=== PATIENT | female | born 1970 | race Caucasian/White ===

== ENCOUNTER 2016-05-12 07:34 | Emergency (ER) | payer MEDICAID ==
[~2016-05-12] VITALS: Wt 75.0 kg
[~2016-05-12 07:34] MED LIST: CIPR500T4 PO; FLUO10CA66 PO; HYD25 PO; HYDR-3498 PO; LEVO50TA74 PO; LOSA100T7 PO; OMEP40CA3 PO; ONDA4TAB35 PO
[2016-05-12] MEDS ORDERED: SOD CHLORIDE 0.9% 500 ML IV STA (07:53)
[2016-05-12] MEDS ORDERED: KETOROLAC 30 MG INJ IV STA (07:53)
[2016-05-12] MEDS ORDERED: ONDANSETRON 4 MG INJ IV STA ×2 (07:53→09:07)
[2016-05-12 08:24] LABS: ADD SCAN DIFF NO
[2016-05-12 08:30] LABS: BASOPHIL # 0.1 10^3/ul (0.0-0.1); EOSINOPHILS # 0.2 10^3/ul (0.0-0.5); EOSINOPHILS % 3.6 % (0.0-7.0); HEMATOCRIT 34.5 % (37.0-47.0); HEMOGLOBIN 10.8 g/dl (12.0-16.0); LYMPHOCYTES # 2.4 10^3/ul (0.8-2.9); LYMPHOCYTES % 40.5 % (15.0-51.0); MEAN CORPUSCULAR HEMOGLOBIN 24.8 pg (29.0-33.0); MEAN CORPUSCULAR HGB CONC 31.3 g/dl (32.0-37.0); MEAN CORPUSCULAR VOLUME 79.1 fl (82.0-101.0); MEAN PLATELET VOLUME 10.6 fl (7.4-10.4); MONOCYTE # 0.5 10^3/ul (0.3-0.9); MONOCYTES % 7.5 % (0.0-11.0); NEUTROPHIL # 2.9 10^3/ul (1.6-7.5); NEUTROPHILS % 47.2 % (39.0-77.0); PLATELET COUNT 414 10^3/UL (140-415); RED BLOOD COUNT 4.36 10^6/ul (4.20-5.40)
[2016-05-12 08:36] LABS: ADD UMIC YES; URINE BILIRUBIN (Dip) NEGATIVE (NEGATIVE); URINE BLOOD (Dip) 3+ (NEGATIVE); URINE COLOR DK. RED (YELLOW); URINE KETONES (Dip) TRACE (NEGATIVE); URINE LEUKOCYTE ESTERASE (Dip) TRACE (NEGATIVE); URINE NITRITE (Dip) POSITIVE (NEGATIVE); URINE TOTAL PROTEIN (Dip) 2+ (NEGATIVE); URINE UROBILINOGEN (Dip) 1.0 E.U./dL (0.1-1.0)
[2016-05-12 08:40] LABS: INR 0.93; PROTIME 12.5 Sec (12.2-14.2)
[2016-05-12 08:41] LABS: PARTIAL THROMBOPLASTIN TIME 34.2 Sec (25.0-35.0)
[2016-05-12 08:46] LABS: ALBUMIN 4.3 g/dl (3.3-4.9); CHLORIDE 103 mmol/L (97-110)
[2016-05-12 08:47] LABS: POTASSIUM 3.8 mmol/L (3.5-5.1); SODIUM 138 mmol/L (135-144)
[2016-05-12 08:49] LABS: ALKALINE PHOSPHATASE 157 IU/L (42-121); ANION GAP 15 (8-16); ASPARTATE AMINO TRANSFERASE 29 IU/L (15-46); BILIRUBIN,INDIRECT 0.2 mg/dl (0-1.1); BILIRUBIN,TOTAL 0.2 mg/dl (0.2-1.3); CARBON DIOXIDE 24 mmol/L (21-31); CREATININE 0.59 mg/dl (0.44-1.00); TOTAL PROTEIN 7.6 g/dl (6.1-8.1)
[2016-05-12 08:50] LABS: ALANINE AMINOTRANSFERASE 41 IU/L (13-69); BLOOD UREA NITROGEN 15 mg/dl (7-20); CALCIUM 9.4 mg/dl (8.4-10.2); GLUCOSE 114 mg/dl (70-220)
[2016-05-12 08:59] LABS: URINE RBCS >200 /HPF (0)
[2016-05-12 09:00] LABS: BACTERIA,URINE MODERATE
[2016-05-12 09:01] LABS: TROPONIN-I < 0.012 ng/ml (0.00-0.12)
[2016-05-12] MEDS ORDERED: HYDROmorphONE 1 MG/ML SYG IV STA (09:07)
[2016-05-12] MEDS ORDERED: IBUP-1542 PO (10:09)
[2016-05-12] MEDS ORDERED: METO25TA7 PO (10:12)
[2016-05-12 10:15] VITALS: BP 156/99; PULSE 80; RESP 18; TEMP 98.8
--- NOTE | 2016-05-12 10:17 | RADRPT ---
PROCEDURE: CT abdomen and pelvis without contrast and with 3-D reconstructions CLINICAL INDICATION: Abdominal Pain TECHNIQUE: CT scan of the abdomen and pelvis without contrast was performed on a multislice CT [facility]. 3-D sagittal and coronal reformatted images were obtained from the axial source images. DLP 1009.62 mGycm CTDIvol 16.86 mGy COMPARISON: CT abdomen/pelvis and soft tissue ultrasound from 07/28/2014 FINDINGS: The visualized lung bases are unremarkable. The liver is homogenous in attenuation. There are no focal liver lesions. There is no intrahepatic or extrahepatic biliary ductal dilatation. The gallbladder is within normal limits. The spleen, pancreas, and adrenal glands are within normal limits. Again noted is a somewhat dense 1.4 cm lesion in the midpole of the right kidney which is unchanged compared to the prior CT from 2014 and is likely a hemorrhagic or proteinaceous cyst. There are at least 2 punctate nonobstructive right renal calculi. There are at least 2 punctate nonobstructive l eft renal calculi. There is no hydronephrosis or hydroureter bilaterally. There are no bladder meryl culi. There are no dilated or thickened loops of bowel. The appendix is within normal limits. There are sc attered colonic diverticula without evidence of diverticulitis. The aorta is within normal limits. There are no enlarged mesenteric, periaortic, or retroperitoneal lymph nodes. There are dystrophic calcifications in the uterus, likely due to degenerated fibroids. There is no free air. There is no free fluid. There are no enlarged intrapelvic or inguinal lymph nodes. A multilobulated oblong opacity is again noted within the subcutaneous soft tissues of the right low er abdominal quadrant, immediately superficial to the abdominal wall which measures of 5.8 x 1.0 cm in maximum axial dimensions on series 3, image 115. It has decreased in size since the prior CT 2014. A soft tissue ultrasound of this lesion was performed on the same day as the CT scan from which demonstrated a a cystic and solid complex mass. This may be a seroma with abscess conside red less likely. IMPRESSION: Punctate nonobstructive bilateral renal calculi without hydronephrosis or hydroureter. 1.4 cm somewhat dense lesion in the midpole of the right kidney is likely a hemorrhagic or proteinac eous cyst. Normal appendix. Scattered colonic diverticula without evidence of diverticulitis. Multilobulated opacity within the subcutaneous soft tissues of the right lower abdominal quadrant is decreased in size since the prior CT study from July 2014 and is likely benign. This may be a sero ma, as above. Correlation with surgical history is recommended. These findings were discussed with Dr. Maldonado of the emergency department over the phone on 05/12 at 10:07 hours. RPTAT: EE Jayy De Physician Date Time Electronically viewed and signed by Jayy De Physician on 05/12/2016 10:17 RA/
[2016-05-12] MEDS ORDERED: CEPH-443 PO (10:20)
--- NOTE | 2016-05-12 10:20 | ERD ---
ER Documentation Chief Complaint Date/Time DATE: 05/12/16 TIME: 10: Chief Complaint left side abd pain and left backpain since last night. n/v/d. mild sob HPI 45-year-old female presents the emergency department complaining of a left- sided abdominal and flank pain. Patient states that intermittently over the course of years, she has had a left- sided flank pain. The pain is nonspecific, sharp and colicky in nature. It is associated with no fevers, chills, hematuria. Patient reports no nausea or vomiting. She reports the pain is mild to moderate and intermittent. Pain does not radiate. Patient states she has been noncompliant with her blood pressure medications, but she reports no chest pain, shortness of breath, focal weakness or numbness. ROS All systems reviewed and are negative except as per history of present illness. Medications Home Meds Active Scripts Metoprolol Succinate* (Toprol XL*) 25 Mg Tab.sr.24h, 25 MG PO DAILY, #30 TAB Prov:KADIE BRO 05/12/16 Ibuprofen* (Ibuprofen*) 600 Mg Tablet, 600 MG PO Q6 for PAIN, #20 TAB Prov:KADIE BRO 05/12/16 Reported Medications Omeprazole* (Prilosec*) 40 Mg Capsule.dr, 40 MG PO DAILY, CAP 12/05/13 Losartan Potassium* (Losartan Potassium*) 100 Mg Tablet, 100 MG PO DAILY, TAB 12/05/13 Levothyroxine Sodium* (Levothyroxine Sodium*) 50 Mcg Tablet, 50 MCG PO DAILY, TAB 12/05/13 Hydrochlorothiazide* (Hydrochlorothiazide*) 25 Mg Tab, 25 MG PO DAILY, TAB 12/05/13 Fluoxetine Hcl* (Prozac*) 10 Mg Capsule, 10 MG PO DAILY 10/12/12 Discontinued Scripts Hydrocodone Bit-Acetaminophen* ([place]*) 5-325 Mg Tab, 1 TAB PO Q6 Y for PAIN, # 7 TAB Prov:ADI MEHTA 07/28/14 Ondansetron Hcl* (Zofran* ODT) 4 mg -ODT Tab.disper, 4 MG PO Q6 Y for NAUSEA AND /OR VOMITING, #10 TAB Prov:ADI MEHTA 07/28/14 Ciprofloxacin Hcl* (Ciprofloxacin Hcl*) 500 Mg Tablet, 500 MG PO BID for 10 Days , TAB Prov:ADI MEHTA 07/28/14 Allergies Allergies: Coded Allergies: No Known Drug Allergies (Verified Allergy, Mild, 06/24/14) PMhx/Soc History of Surgery: Yes ( X3) Anesthesia Reaction: No Hx Neurological Disorder: No Hx Respiratory Disorders: No Hx Cardiac Disorders: Yes (HTN) Hx Psychiatric Problems: Yes (ANXIETY) Hx Miscellaneous Medical Probl: Yes (dvt right leg 1 week ago, right ankle fx) Hx Alcohol Use: No Hx Substance Use: No Hx Tobacco Use: No Smoking Status: Never smoker FmHx Noncontributory for chief complaint Physical Exam Vitals Vital Signs Date Time Temp Pulse Resp B/P Pulse Ox O2 Delivery O2 Flow Rate FiO2 05/12/16 08:20 80 20 174/94 99 Room Air 05/12/16 07:38 98.8 85 20 203/125 100 Physical Exam GENERAL: The patient is well developed and appropriate for usual state of health in no apparent distress HEENT: Pupils equal, round, and reactive to light. EOMI. There is no scleral icterus. NECK: C-spine is soft and supple, there is no meningismus. There is no cervical lymphadenopathy. LUNGS: Clear to auscultation bilaterally. There are no rales, wheezes or rhonchi. HEART: Regular rate and rhythm, no murmurs, clicks, rubs or gallops. ABDOMEN: Soft, non-tender, non-distended. There are bowel sounds in all four quadrants. No rebound or guarding. No CVA tenderness. No pulsatile abdominal mass. EXTREMITIES: There is no peripheral cyanosis or edema. No focal swelling or erythema. NEURO: The patient moves all four extremities with 5/5 strength. Cranial nerves II - XII are intact. Normal gait. Alert and oriented SKIN: There is no apparent rash or petechiae. HEME/LYMPHATIC: There is no evidence of excessive bruising or lymphedema. PSYCHIATRIC: The patient does not appear anxious or depressed. Result Diagram: 05/12/1618 05/12/1618 Results 24 hrs Laboratory Tests Test 05/12/16 08:18 White Blood Count 6.010^3/ul Red Blood Count 4.3610^6/ul Hemoglobin 10.8g/dl Hematocrit 34.5% Mean Corpuscular Volume 79.1fl Mean Corpuscular Hemoglobin 24.8pg Mean Corpuscular Hemoglobin Concent 31.3g/dl Red Cell Distribution Width 17.0% Platelet Count 08310^3/UL Mean Platelet Volume 10.6fl Neutrophils % 47.2% Lymphocytes % 40.5% Monocytes % 7.5% Eosinophils % 3.6% Basophils % 1.0% Nucleated Red Blood Cells % 0.0/100WBC Neutrophils # 2.910^3/ul Lymphocytes # 2.410^3/ul Monocytes # 0.510^3/ul Eosinophils # 0.210^3/ul Basophils # 0.110^3/ul Nucleated Red Blood Cells # 0.010^3/ul Prothrombin Time 12.5Sec Prothrombin Time Ratio 1.0 INR International Normalized Ratio 0.93 Activated Partial Thromboplast Time 34.2Sec Urine Color DK. RED Urine Clarity BLOODY Urine pH 6.5 Urine Specific [place] 1.015 Urine Ketones TRACE Urine Nitrite POSITIVE Urine Bilirubin NEGATIVE Urine Urobilinogen 1.0 E.U./dL Urine Leukocyte Esterase TRACE Urine Microscopic RBC >200/HPF Urine Microscopic WBC 2-5/HPF Urine Epithelial Cells MODERATE Urine Bacteria MODERATE Urine Hemoglobin 3+ Urine Glucose 0.1%% Urine Total Protein 2+ Sodium Level 138mmol/L Potassium Level 3.8mmol/L Chloride Level 103mmol/L Carbon Dioxide Level 24mmol/L Anion Gap 15 Blood Urea Nitrogen 15mg/dl Creatinine 0.59mg/dl Glucose Level 114mg/dl Calcium Level 9.4mg/dl Total Bilirubin 0.2mg/dl Direct Bilirubin 0.00mg/dl Indirect Bilirubin 0.2mg/dl Aspartate Amino Transf (AST/SGOT) 29IU/L Alanine Aminotransferase (ALT/SGPT) 41IU/L Alkaline Phosphatase 157IU/L Troponin I < 0.012ng/ml Total Protein 7.6g/dl Albumin 4.3g/dl Globulin 3.30g/dl Albumin/Globulin Ratio 1.30 Lipase 221U/L Serum HCG, Qualitative NEGATIVE Current Medications Medications (Trade) Dose Ordered Sig/Rani Route PRN Reason Start Time Stop Time Status Last Admin Dose Admin Sodium Chloride (NS) 500 ml @ 500 mls/hr Q1H STAT IV 05/12/16 07:53 05/12/16 08:52 DC 05/12/16 08:14 Ondansetron HCl (Zofran Inj) 4 mg ONCE STAT IV 05/12/16 07:53 05/12/16 07:54 DC 05/12/16 08:14 Ketorolac Tromethamine (Toradol) 30 mg ONCE STAT IV 05/12/16 07:53 05/12/16 07:54 DC 05/12/16 08:17 Hydromorphone HCl (Dilaudid) 0.5 mg ONCE STAT IV 05/12/16 09:07 05/12/16 09:08 DC 05/12/16 09:34 Ondansetron HCl (Zofran Inj) 4 mg ONCE STAT IV 05/12/16 09:07 05/12/16 09:08 DC 05/12/16 09:33 Procedures/MDM Patient was taken to a room, seen and evaluated. Comfort measures were initiated. Diagnostic tests were ordered and reviewed. 3 LEAD RHYTHM STRIP: Normal sinus rhythm without ectopy 12 lead EKG interpreted by myself: Rate/rhythm: Normal sinus rhythm [place]/intervals: Normal Ischemia: Nonspecific ST and T-wave changes with no ST elevation Impression: Nonspecific EKG RADIOLOGY: reviewed with the radiologist REEVALUATION: Patient remained comfortable appearing MEDICAL DECISION MAKIN-year-old female presents with hypertension and left- sided flank pain. Differential diagnosis entertained was broad and potential high acuity including aortic disease, kidney disease. At this time, patient has evidence of what appears to be kidney stone disease but no obvious obstructing kidney stone. From a hypertension standpoint, she shows no evidence of endorgan dysfunction based on clinical exam and lab work and workup. Patient's blood pressure has normalized as her pain is improved. At this time, patient has been restarted back on blood pressure medication and now seems appropriate for outpatient care. Departure Diagnosis: Primary Impression: Abdominal pain Additional Impression: Hypertension Condition: Stable Patient Instructions: Abdominal Pain, High Blood Pressure (Hypertension), Kidney Stone (Urine) Referrals: MYRNA SIMEON MD Additional Instructions: See your doctor for follow-up as discussed. Take a copy of your test results, if appropriate, to this follow-up visit. See your doctor or return here if your symptoms do not improve as expected. At any time, please return to the emergency department for any change or worsening in her symptoms. KADIE BRO May 12, 2016 10:20
== END 2016-05-12 10:15 | disposition home or self-care (01) ==
LOC: E/R 07:34
DX: R10.9 Unspecified abdominal pain (principal); R40.2252 Coma scale, best verbal response, oriented, at arrival to emergency department; I10 Essential (primary) hypertension; R40.2142 Coma scale, eyes open, spontaneous, at arrival to emergency department; R40.2362 Coma scale, best motor response, obeys commands, at arrival to emergency department
CPT/HCPCS: 36415; 74176; 80053; 81001; 81003; 83690; 84484; 84703; 85025; 85610; 85730; 93005; 96374; 96375; 96376; J1170; J1885; J2405; J7040; Z7502

== ENCOUNTER 2016-09-20 13:40 | Emergency (ER) | payer SELFPAY ==
[~2016-09-20] VITALS: Ht 162.6 cm; Wt 75.5 kg
[~2016-09-20 13:40] MED LIST changes: +CEPH-443 PO; -CIPR500T4 PO; -HYDR-3498 PO; +IBUP-1542 PO; +METO25TA7 PO; -ONDA4TAB35 PO
[2016-09-20 13:43] VITALS: Ht 162.6 cm; Wt 75.5 kg
[2016-09-20] MEDS ORDERED: SOD CHLORIDE 0.9% 1,000 ML IV STA (14:45)
[2016-09-20] MEDS ORDERED: KETOROLAC 30 MG INJ IV STA (14:45)
[2016-09-20 15:20] LABS: BASOPHIL # 0.1 10^3/ul (0.0-0.1); BASOPHILS % 1.1 % (0.0-2.0); EOSINOPHILS # 0.2 10^3/ul (0.0-0.5); EOSINOPHILS % 3.1 % (0.0-7.0); HEMOGLOBIN 11.3 g/dl (12.0-16.0); LYMPHOCYTES # 2.5 10^3/ul (0.8-2.9); LYMPHOCYTES % 38.6 % (15.0-51.0); MEAN CORPUSCULAR HEMOGLOBIN 25.1 pg (29.0-33.0); MEAN CORPUSCULAR HGB CONC 31.4 g/dl (32.0-37.0); MEAN CORPUSCULAR VOLUME 79.8 fl (82.0-101.0); MEAN PLATELET VOLUME 10.9 fl (7.4-10.4); MONOCYTE # 0.5 10^3/ul (0.3-0.9); MONOCYTES % 8.2 % (0.0-11.0); NEUTROPHIL # 3.2 10^3/ul (1.6-7.5); NEUTROPHILS % 48.7 % (39.0-77.0); PLATELET COUNT 383 10^3/UL (140-415); RED BLOOD COUNT 4.51 10^6/ul (4.20-5.40); RED CELL DISTRIBUTION WIDTH 15.9 % (11.5-14.5); WHITE BLOOD COUNT 6.5 10^3/ul (4.8-10.8)
--- NOTE | 2016-09-20 15:28 | RADRPT ---
PROCEDURE: Right upper quadrant ultrasound CLINICAL INDICATION: Abdominal pain TECHNIQUE: Multiple real-time images were acquired of the patient's abdomen and right retroperiton eum utilizing a high resolution transducer. COMPARISON: None FINDINGS: The liver is slightly increased in echogenicity and measures 16.6 cm. No focal hepatic masses are s een. The gallbladder is physiologically distended. There is no evidence of gallstones, gallbladder wall thickening, or pericholecystic fluid. The intra and extrahepatic bile ducts are normal in meryl iber. The common bile duct measures 2.1 mm. Midline images demonstrate the pancreas to be normal in echogenicity without obvious inflammatory ch serge. Pancreatic tail is suboptimally seen Survey views of the right kidney demonstrate no evidence of hydronephrosis or renal calculi. The ri ght kidney measures 10.8 cm. IMPRESSION: 1. No evidence of cholelithiasis or acute cholecystitis. 2. Mild fatty liver. 3. Pancreatic tail is suboptimally seen RPTAT: HH .Kelby Mooney MD, Date Time Electronically viewed and signed by .Kelby Mooney MD, on 09/20/2016 15:27 .W/
[2016-09-20 15:36] LABS: ADD UMIC NO; UR ASCORBIC ACID NEGATIVE (NEGATIVE); UR BILIRUBIN (Dip) NEGATIVE (NEGATIVE); UR BLOOD (Dip) NEGATIVE (NEGATIVE); UR CLARITY SLIGHTLY CLOUDY (CLEAR); UR COLOR YELLOW (YELLOW); UR GLUCOSE (Dip) NEGATIVE (NEGATIVE); UR KETONES (Dip) NEGATIVE (NEGATIVE); UR LEUKOCYTE ESTERASE (Dip) NEGATIVE Leu/ul (NEGATIVE); UR MUCUS FEW /HPF (NONE SEEN); UR NITRITE (Dip) NEGATIVE (NEGATIVE); UR RBC 4 /HPF (0-5); UR SPECIFIC GRAVITY (Dip) 1.021 (1.003-1.030); UR SQUAMOUS EPITHELIAL CELL FEW /HPF (FEW); UR TOTAL PROTEIN (Dip) NEGATIVE (NEGATIVE); UR UROBILINOGEN (Dip) NEGATIVE (NEGATIVE)
[2016-09-20 15:39] LABS: ALBUMIN 4.6 g/dl (3.3-4.9); ALBUMIN/GLOBULIN RATIO 1.24; BILIRUBIN,INDIRECT 0.3 mg/dl (0-1.1); BILIRUBIN,TOTAL 0.3 mg/dl (0.2-1.3); CREATININE 0.69 mg/dl (0.44-1.00); POTASSIUM 4.1 mmol/L (3.5-5.1); TOTAL PROTEIN 8.3 g/dl (6.1-8.1)
--- NOTE | 2016-09-20 16:21 | RADRPT ---
PROCEDURE: CT Abdomen and Pelvis without contrast. CLINICAL INDICATION: Abdominal pain. TECHNIQUE: CT scan of the abdomen and pelvis without contrast was performed on a multidetector hig h-resolution CT scanner. The patient was scanned without intravenous contrast. Coronal and sagittal reformatted images were obtained from the axial source images. Images were reviewed on a high-resol [facility] PACS workstation. One or more of the following dose reduction techniques were used: Automated exposure control, adjustment of the mA and/or kV according to patient size, use of iterative recon struction technique. The total exam CTDI equals 12.89 mGy and the total exam DLP equals 693.76 mGy- cm. COMPARISON: Ultrasound 09/20/2016. CT from 05/12/2016. FINDINGS: The visualized lung bases are unremarkable. The liver is homogenous in attenuation. There are no focal liver lesions. There is no intrahepatic or extrahepatic biliary ductal dilatation. The gallbladder is within normal limits. The spleen, virgen creas, and adrenal glands are within normal limits. Again noted is a somewhat dense 1.4 cm lesion in the midpole of the right kidney which is unchanged compared to the prior CT from 2014 and is likely a hemorrhagic or proteinaceous cyst. There are at l east 2 punctate nonobstructive right renal calculi. There are at least 2 punctate nonobstructive lef t renal calculi. There is no hydronephrosis or hydroureter bilaterally. There are no bladder calculi . There are no dilated or thickened loops of bowel. The appendix is within normal limits. There are sc attered colonic diverticula without evidence of diverticulitis. The aorta is within normal limits. There are no enlarged mesenteric, periaortic, or retroperitoneal lymph nodes. There are dystrophic calcifications in the uterus, likely due to degenerated fibroids. There is no f ree air. There is no free fluid. There are no enlarged intrapelvic or inguinal lymph nodes. A mul tilobulated oblong opacity is again noted within the subcutaneous soft tissues of the right lower ab dominal quadrant, immediately superficial to the abdominal wall which measures of 5.8 x 1.0 cm in ma ximum axial dimensions, stable since the prior CT. IMPRESSION: 1. No significant interval change. No evidence of acute inflammatory process in the abdomen or pel vis. 2. Punctate nonobstructive bilateral renal calculi without hydronephrosis or hydroureter. 3. 1.4 cm somewhat dense lesion in the midpole of the right kidney is likely a hemorrhagic or prote inaceous cyst and indeterminate on this exam. Targeted renal ultrasound may be useful for further e valuation. 4. Scattered colonic diverticula without evidence of diverticulitis. 5. Stable multilobulated opacity within the subcutaneous soft tissues of the right lower abdominal quadrant, likely benign and may represent a seroma. RPTAT: JJ .Morales Isbell MD, MD Date Time Electronically viewed and signed by .Morales Isbell MD, MD on 09/20/2016 16:21 .A/
[2016-09-20] MEDS ORDERED: ONDA4TAB8 PO (16:26)
[2016-09-20] MEDS ORDERED: HYDR-906 PO (16:26)
[2016-09-20] MEDS ORDERED: HYDROCODONE/APAP (5/325) TAB PO ONE (16:30)
--- NOTE | 2016-09-20 16:37 | ERD ---
ER Documentation Chief Complaint Date/Time DATE: 09/20/16 TIME: 16:31 Chief Complaint 11/22 abd pain with nausea x 2 days HPI 46-year-old female coming in complaining of abdominal pain 1 year. Patient states it has progressively gotten worse over the last 2 days. Patient states she has had some nausea and diarrhea and felt weak over the last 2 days. Denies any fevers. Denies chest pain or shortness of breath. Denies headaches. She is not taking medications for symptoms. Describes the pain as sharp in the left lower abdomen and right upper abdomen. Patient was told in the past that she has kidney stones and states that the pain is similar. Denies medical problems. Denies allergies medications. Denies surgeries. Denies drugs, smoking, alcohol. ROS All systems reviewed and are negative except as per history of present illness. Medications Home Meds Active Scripts Ondansetron Hcl* (Zofran*) 4 Mg Tablet, 4 MG PO Q6H for NAUSEA AND/OR VOMITING, #30 TAB Prov:YORDY CASTANEDA PA-C 09/20/16 Hydrocodone/Acetaminophen (Pelham 5-325 Tablet) 1 Each Tablet, 1 TAB PO Q6H Y for PAIN, #7 TAB Prov:YORDY CASTANEDA PA-C 09/20/16 Cephalexin* (Keflex*) 500 Mg Capsule, 500 MG PO QID for 5 Days, CAP Prov:KADIE BRO 05/12/16 Metoprolol Succinate* (Toprol XL*) 25 Mg Tab.sr.24h, 25 MG PO DAILY, #30 TAB Prov:KADIE BRO 05/12/16 Ibuprofen* (Ibuprofen*) 600 Mg Tablet, 600 MG PO Q6 for PAIN, #20 TAB Prov:KADIE BRO 05/12/16 Reported Medications Omeprazole* (Prilosec*) 40 Mg Capsule.dr, 40 MG PO DAILY, CAP 12/05/13 Losartan Potassium* (Losartan Potassium*) 100 Mg Tablet, 100 MG PO DAILY, TAB 12/05/13 Levothyroxine Sodium* (Levothyroxine Sodium*) 50 Mcg Tablet, 50 MCG PO DAILY, TAB 12/05/13 Hydrochlorothiazide* (Hydrochlorothiazide*) 25 Mg Tab, 25 MG PO DAILY, TAB 12/05/13 Fluoxetine Hcl* (Prozac*) 10 Mg Capsule, 10 MG PO DAILY 10/12/12 Allergies Allergies: Coded Allergies: No Known Drug Allergies (Verified Allergy, Mild, 09/20/16) PMhx/Soc History of Surgery: Yes ( X3) Anesthesia Reaction: No Hx Neurological Disorder: No Hx Respiratory Disorders: No Hx Cardiac Disorders: Yes (HTN) Hx Psychiatric Problems: Yes (ANXIETY) Hx Miscellaneous Medical Probl: Yes (dvt right leg 1 week ago, right ankle fx, KIDNEY STONE, HYPOTHYROID) Hx Alcohol Use: No Hx Substance Use: No Hx Tobacco Use: No Smoking Status: Never smoker Physical Exam Vitals Vital Signs Date Time Temp Pulse Resp B/P Pulse Ox O2 Delivery O2 Flow Rate FiO2 09/20/16 13:43 98.1 98 20 176/95 99 Physical Exam Resp: Clear to auscultation bilaterally Cardio: Regular rate and rhythm, no murmurs Abd: Soft, non tender, non distended. Normal bowel sounds. Mild TTP over right upper quad and left flank. Skin: No petechiae or rashes Back: No midline or flank tenderness Result Diagram: 09/20/16 1500 09/20/16 1500 Results 24 hrs Laboratory Tests Test 09/20/16 15:00 09/20/16 15:05 White Blood Count 6.510^3/ul Red Blood Count 4.5110^6/ul Hemoglobin 11.3g/dl Hematocrit 36.0% Mean Corpuscular Volume 79.8fl Mean Corpuscular Hemoglobin 25.1pg Mean Corpuscular Hemoglobin Concent 31.4g/dl Red Cell Distribution Width 15.9% Platelet Count 90541^3/UL Mean Platelet Volume 10.9fl Neutrophils % 48.7% Lymphocytes % 38.6% Monocytes % 8.2% Eosinophils % 3.1% Basophils % 1.1% Nucleated Red Blood Cells % 0.0/100WBC Neutrophils # 3.210^3/ul Lymphocytes # 2.510^3/ul Monocytes # 0.510^3/ul Eosinophils # 0.210^3/ul Basophils # 0.110^3/ul Nucleated Red Blood Cells # 0.010^3/ul Sodium Level 145mmol/L Potassium Level 4.1mmol/L Chloride Level 103mmol/L Carbon Dioxide Level 28mmol/L Anion Gap 18 Blood Urea Nitrogen 12mg/dl Creatinine 0.69mg/dl Glucose Level 99mg/dl Calcium Level 10.0mg/dl Total Bilirubin 0.3mg/dl Direct Bilirubin 0.00mg/dl Indirect Bilirubin 0.3mg/dl Aspartate Amino Transf (AST/SGOT) 40IU/L Alanine Aminotransferase (ALT/SGPT) 64IU/L Alkaline Phosphatase 137IU/L Total Protein 8.3g/dl Albumin 4.6g/dl Globulin 3.70g/dl Albumin/Globulin Ratio 1.24 Lipase 236U/L Urine Color YELLOW Urine Clarity SLIGHTLY CLOUDY Urine pH 6.0 Urine Specific [place] 1.021 Urine Ketones NEGATIVEmg/dL Urine Nitrite NEGATIVEmg/dL Urine Bilirubin NEGATIVEmg/dL Urine Urobilinogen NEGATIVEmg/dL Urine Leukocyte Esterase NEGATIVELeu/ul Urine Microscopic RBC 4/HPF Urine Microscopic WBC 3/HPF Urine Squamous Epithelial Cells FEW/HPF Urine Mucus FEW/HPF Urine Hemoglobin NEGATIVEmg/dL Urine Glucose NEGATIVEmg/dL Urine Total Protein NEGATIVEmg/dl Current Medications Medications (Trade) Dose Ordered Sig/Rani Route PRN Reason Start Time Stop Time Status Last Admin Dose Admin Sodium Chloride (NS) 1,000 ml @ 1,000 mls/hr Q1H STAT IV 09/20/16 14:45 09/20/16 15:44 DC 09/20/16 15:27 Ketorolac Tromethamine (Toradol) 30 mg ONCE STAT IV 09/20/16 14:45 09/20/16 14:46 DC 09/20/16 15:27 Acetaminophen/ Hydrocodone Bitart (Pelham (5/325)) 1 tab ONCE ONCE PO 09/20/16 16:30 09/20/16 16:31 Procedures/MDM DIAGNOSTIC IMAGING REPORT Patient: LAURENT ERNANDEZ : 1970 Age: 46 Sex: F MR #: [id number] DOS: 09/20/16 1445 Ordering MD: GILLIAN CASTANEDA PA-C Location: [facility] Room/Bed: PROCEDURE: Right upper quadrant ultrasound CLINICAL INDICATION: Abdominal pain TECHNIQUE: Multiple real-time images were acquired of the patient's abdomen and right retroperitoneum utilizing a high resolution transducer. COMPARISON: None FINDINGS: The liver is slightly increased in echogenicity and measures 16.6 cm. No focal hepatic masses are seen. The gallbladder is physiologically distended. There is no evidence of gallstones, gallbladder wall thickening, or pericholecystic fluid. The intra and extrahepatic bile ducts are normal in caliber. The common bile duct measures 2.1 mm. Midline images demonstrate the pancreas to be normal in echogenicity without obvious inflammatory change. Pancreatic tail is suboptimally seen Survey views of the right kidney demonstrate no evidence of hydronephrosis or renal calculi. The right kidney measures 10.8 cm. IMPRESSION: 1. No evidence of cholelithiasis or acute cholecystitis. 2. Mild fatty liver. 3. Pancreatic tail is suboptimally seen RPTAT: HH .Kelby Mooney MD, MD Date Time Electronically viewed and signed by .Kelby Mooney MD, on 09/20/2016 15:27 DIAGNOSTIC IMAGING REPORT Patient: LAURENT ERNANDEZ : 1970 Age: 46 Sex: F MR #: [id number] DOS: 09/20/16 1534 Ordering MD: GILLIAN CASTANEDA PA-C Location: [facility] Room/Bed: PROCEDURE: CT Abdomen and Pelvis without contrast. CLINICAL INDICATION: Abdominal pain. TECHNIQUE: CT scan of the abdomen and pelvis without contrast was performed on a multidetector high-resolution CT scanner. The patient was scanned without intravenous contrast. Coronal and sagittal reformatted images were obtained from the axial source images. Images were reviewed on a high-resolution PACS workstation. One or more of the following dose reduction techniques were used: Automated exposure control, adjustment of the mA and/or kV according to patient size, use of iterative reconstruction technique. The total exam CTDI equals 12.89 mGy and the total exam DLP equals 693.76 mGy-cm. COMPARISON: Ultrasound 09/20/2016. CT from 05/12/2016. FINDINGS: The visualized lung bases are unremarkable. The liver is homogenous in attenuation. There are no focal liver lesions. There is no intrahepatic or extrahepatic biliary ductal dilatation. The gallbladder is within normal limits. The spleen, pancreas, and adrenal glands are within normal limits. Again noted is a somewhat dense 1.4 cm lesion in the midpole of the right kidney which is unchanged compared to the prior CT from 2015 and is likely a hemorrhagic or proteinaceous cyst. There are at least 2 punctate nonobstructive right renal calculi. There are at least 2 punctate nonobstructive left renal calculi. There is no hydronephrosis or hydroureter bilaterally. There are no bladder calculi. There are no dilated or thickened loops of bowel. The appendix is within normal limits. There are scattered colonic diverticula without evidence of diverticulitis. The aorta is within normal limits. There are no enlarged mesenteric, periaortic , or retroperitoneal lymph nodes. There are dystrophic calcifications in the uterus, likely due to degenerated fibroids. There is no free air. There is no free fluid. There are no enlarged intrapelvic or inguinal lymph nodes. A multilobulated oblong opacity is again noted within the subcutaneous soft tissues of the right lower abdominal quadrant , immediately superficial to the abdominal wall which measures of 5.8 x 1.0 cm in maximum axial dimensions, stable since the prior CT. IMPRESSION: 1. No significant interval change. No evidence of acute inflammatory process in the abdomen or pelvis. 2. Punctate nonobstructive bilateral renal calculi without hydronephrosis or hydroureter. 3. 1.4 cm somewhat dense lesion in the midpole of the right kidney is likely a hemorrhagic or proteinaceous cyst and indeterminate on this exam. Targeted renal ultrasound may be useful for further evaluation. 4. Scattered colonic diverticula without evidence of diverticulitis. 5. Stable multilobulated opacity within the subcutaneous soft tissues of the right lower abdominal quadrant, likely benign and may represent a seroma. RPTAT: JJ .Morales Isbell MD, MD Date Time Electronically viewed and signed by .Morales Isbell MD, on 09/20/2016 16:21 ER Course: Toradol and Pelham given in ED for pain control MDM: I have low suspicion for choledocholithiasis cholecystitis or cholangitis. Patient's ultrasound is within normal limits and liver enzymes within normal limits. A low suspicion for acute abdomen is patient's abdominal CT scan is within normal limits. A low suspicion for obstructing stone or acute kidney failure is patient's BUN and creatinine are within normal limits. Patient does not have signs of hydronephrosis on CT scan. I have low suspicion for bowel obstruction. Low suspicion for appendicitis. Low suspicion for other abdominal emergencies. Patient's exam is within normal limits. I will suspicion for cardiac abnormality. Patient's exam is within normal limits vital signs are stable. Patient does not have complaint of chest pain. Patient has long history of chronic abdominal pain. Patient likely has flare of chronic abdominal pain. Patient will be discharged with pain medication and given strict ER precautions. Patient is told to return to ER symptoms change or worsen. Departure Diagnosis: Primary Impression: Abdominal pain Condition: Stable Patient Instructions: Abdominal Pain Referrals: [facility] YOU HAVE RECEIVED A MEDICAL SCREENING EXAM AND THE RESULTS INDICATE THAT YOU DO NOT HAVE A CONDITION THAT REQUIRES URGENT TREATMENT IN THE EMERGENCY DEPARTMENT. FURTHER EVALUATION AND TREATMENT OF YOUR CONDITION CAN WAIT UNTIL YOU ARE SEEN IN YOUR DOCTORS OFFICE WITHIN THE NEXT 1-2 DAYS. IT IS YOUR RESPONSIBILITY TO MAKE AN APPOINTMENT FOR FOLOW-UP CARE. IF YOU HAVE A PRIMARY DOCTOR --you should call your primary doctor and schedule an appointment IF YOU DO NOT HAVE A PRIMARY DOCTOR YOU CAN CALL OUR PHYSICIAN REFERRAL HOTLINE AT IF YOU CAN NOT AFFORD TO SEE A PHYSICIAN YOU CAN CHOSE FROM THE FOLLOWING [facility] [address] [facility]. [facility] [address] [address] [address] [facility] [address] [facility] [address] [facility]. [facility]. [address] Additional Instructions: FOLLOW UP WITH YOUR PRIMARY CARE PHYSICIAN TOMORROW.Return to this facility if you are not improving as expected. YORDY CASTANEDA PA-C Sep 20, 2016 16:37
--- NOTE | 2016-09-20 17:14 | EN ---
Date/Time of Note Date/Time of Note DATE: 09/20/16 TIME: 17:13 ER Progress Note Patient left prior to discharge. We attempted to contact patient with no success. YORDY CASTANEDA PA-C Sep 20, 2016 17:14
== END 2016-09-20 17:35 | disposition home or self-care (01) ==
LOC: FTE 13:40
DX: R10.11 Right upper quadrant pain (principal); E03.9 Hypothyroidism, unspecified; I10 Essential (primary) hypertension; R11.0 Nausea
CPT/HCPCS: 36415; 74176; 76705; 80053; 81001; 83690; 85025; 96374; 99285; J1885; J7030; 81003

== ENCOUNTER 2016-11-18 08:13 | Emergency (ER) | payer OTHER ==
[~2016-11-18] VITALS: Wt 77.5 kg
[~2016-11-18 08:13] MED LIST changes: -HYD25 PO; +HYDR-906 PO; +HYDR25TA6 PO; +METO-335 PO; -METO25TA7 PO; +ONDA4TAB8 PO
[2016-11-18] MEDS ORDERED: KETOROLAC 30 MG INJ IM STA (08:50)
[2016-11-18] MEDS ORDERED: ONDANSETRON (ODT) 4 MG TAB ODT STA (08:50)
[2016-11-18 09:04] LABS: URINE BLOOD (Dip) POC Trace-intact (NEGATIVE)
[2016-11-18] MEDS ORDERED: NAPR-260 PO (09:29)
[2016-11-18 09:49] VITALS: BP 135/78; PULSE 70; RESP 20
--- NOTE | 2016-11-18 10:21 | ERD ---
ER Documentation Chief Complaint Date/Time DATE: 11/18/16 TIME: 10:13 Chief Complaint BACK PAIN, ABD PAIN, ONSET 2 YEARS, ON AND OFF, NO N/V HPI Patient is a 46-year-old female with past medical history of hypertension, hypothyroid, chronic back pain, chronic abdominal pain presenting to the emergency department with complaints of crampy bilateral suprapubic pain which has been ongoing intermittently and worsening over the past 5 days. Additionally she reports nausea and dysuria which has been improving. She was last seen here on 09-20-2016 and had a full workup to include laboratory studies, CT abdomen without contrast, and gallbladder ultrasound, all with no acute concerning findings. The patient states this episode feels very similar to her chronic back and chronic abdominal pain. At the end of the discussion for the patient's history of present illness, she mentioned a vague stabbing pain in her mid chest which lasted 1 second this morning and then spontaneously resolved. She has not felt the sensation since that one episode. She denies fevers, chills, or other symptoms at this time. ROS All systems reviewed and are negative except as per history of present illness. Medications Home Meds Active Scripts Naproxen* (Naprosyn*) 500 Mg Tablet, 500 MG PO BID Y for PAIN AND/OR INFLAMMATION, #30 TAB Prov:DARRYL RAZO PA-C 11/18/16 Ondansetron Hcl* (Zofran*) 4 Mg Tablet, 4 MG PO Q6H for NAUSEA AND/OR VOMITING, #30 TAB Prov:YORDY CASATNEDA PA-C 09/20/16 Hydrocodone/Acetaminophen ([place] 5-325 Tablet) 1 Each Tablet, 1 TAB PO Q6H Y for PAIN, #7 TAB Prov:YORDY CASTANEDA PA-C 09/20/16 Cephalexin* (Keflex*) 500 Mg Capsule, 500 MG PO QID for 5 Days, CAP Prov:KADIE BRO 05/12/16 Metoprolol Succinate* (Toprol XL*) 25 Mg Tab.sr.24h, 25 MG PO DAILY, #30 TAB Prov:KADIE BRO 05/12/16 Ibuprofen* (Ibuprofen*) 600 Mg Tablet, 600 MG PO Q6 for PAIN, #20 TAB Prov:KADIE BRO 05/12/16 Reported Medications Omeprazole* (Prilosec*) 40 Mg Capsule.dr, 40 MG PO DAILY, CAP 12/05/13 Losartan Potassium* (Losartan Potassium*) 100 Mg Tablet, 100 MG PO DAILY, TAB 12/05/13 Levothyroxine Sodium* (Levothyroxine Sodium*) 50 Mcg Tablet, 50 MCG PO DAILY, TAB 12/05/13 Hydrochlorothiazide* (Hydrochlorothiazide*) 25 Mg Tab, 25 MG PO DAILY, TAB 12/05/13 Fluoxetine Hcl* (Prozac*) 10 Mg Capsule, 10 MG PO DAILY 10/12/12 Allergies Allergies: Coded Allergies: No Known Drug Allergies (Verified Allergy, Mild, 09/20/16) PMhx/Soc History of Surgery: Yes ( X3) Anesthesia Reaction: No Hx Neurological Disorder: No Hx Respiratory Disorders: No Hx Cardiac Disorders: Yes (HTN) Hx Psychiatric Problems: Yes (ANXIETY) Hx Miscellaneous Medical Probl: Yes (dvt right leg 1 week ago, right ankle fx, KIDNEY STONE, HYPOTHYROID) Hx Alcohol Use: No Hx Substance Use: No Hx Tobacco Use: No Smoking Status: Never smoker Physical Exam Vitals Vital Signs Date Time Temp Pulse Resp B/P Pulse Ox O2 Delivery O2 Flow Rate FiO2 11/18/16 09:49 70 20 135/78 11/18/16 08:16 98.0 85 17 165/89 99 Physical Exam Const: Nontoxic, well-appearing female in no acute distress. Head: Atraumatic Eyes: Normal Conjunctiva ENT: Normal External Ears, Nose and Mouth. Neck: Full range of motion..~ No meningismus. Resp: Clear to auscultation bilaterally Cardio: Regular rate and rhythm, no murmurs Abd: Soft, mild suprapubic tenderness to palpation bilaterally, no abdominal tenderness, rebound, or guarding noted, non distended. Normal bowel sounds Skin: No petechiae or rashes Back: No midline or flank tenderness. No CVA tenderness. There is mild paraspinal muscle tenderness to the lumbar spine bilaterally. Ext: No cyanosis, or edema Neur: Awake and alert Psych: Normal Mood and Affect Results 24 hrs Laboratory Tests Test 11/18/16 09:12 Bedside Urine pH (LAB) 7.0 Bedside Urine Protein (LAB) Negative Bedside Urine Glucose (UA) Negative Bedside Urine Ketones (LAB) Negative Bedside Urine Blood Trace-intact Bedside Urine Nitrite (LAB) Negative Bedside Urine Leukocyte Esterase (L Negative Current Medications Medications (Trade) Dose Ordered Sig/Rani Route PRN Reason Start Time Stop Time Status Last Admin Dose Admin Ketorolac Tromethamine (Toradol) 30 mg ONCE STAT IM 11/18/16 08:50 11/18/16 08:52 DC 11/18/16 09:07 Ondansetron HCl (Zofran Odt) 4 mg ONCE STAT ODT 11/18/16 08:50 11/18/16 08:52 DC 11/18/16 09:07 Procedures/MDM 46-year-old female presents to the emergency department with acute exacerbation of her chronic abdominal and back pain. Physical examination was essentially unremarkable for any signs concerning for acute abdomen, however the patient did have some mild suprapubic tenderness bilaterally. There was also some mild tenderness to the paraspinal muscles of the lumbar spine bilaterally, but there was no CVA tenderness. Because the patient did mention some dysuria, I ordered a urine dip, which was negative for signs of proteinuria or acute urinary tract infection. The patient did receive a full abdominal workup less than 2 months ago in the emergency department which did show no acute findings. I felt the patient is a vague description of a stabbing chest pain which lasted for 1 second was more related to musculoskeletal etiology and not a cardiac etiology. I do not feel she required further workup for this in the department. Low suspicion for acute coronary syndrome. I have very low suspicion for acute abdomen at this time, and I did discuss patient's case with attending physician , Dr. Philip Cooley, who agreed with my assessment, plan, and the patient's ED course. Upon review of the patient's past medical records at this department, she has had multiple emergency room visits for her back pain, abdominal pain, and chest pain, including admission to the hospital for full cardiac observation and evaluation. I felt the patient's presentation at this visit was consistent with acute exacerbation of her chronic back pain. Low suspicion for urinary tract infection, pyelonephritis, acute abdomen, sepsis, or other emergent conditions. The patient was given a prescription for naproxen for her back pain. She was treated in the department with IM Toradol and p.o. Zofran and her symptoms improved immensely prior to discharge. Strict ER return precautions were discussed with the patient and she demonstrated good understanding. Follow-up with the primary care physician was advised within 1- 2 days. Departure Diagnosis: Primary Impression: Back pain Back pain location: low back pain Chronicity: acute Back pain laterality: bilateral Sciatica presence: without sciatica Qualified Code: M54.5 - Acute bilateral low back pain without sciatica Condition: Fair Patient Instructions: Back Pain (Acute Or Chronic) Referrals: [facility] YOU HAVE RECEIVED A MEDICAL SCREENING EXAM AND THE RESULTS INDICATE THAT YOU DO NOT HAVE A CONDITION THAT REQUIRES URGENT TREATMENT IN THE EMERGENCY DEPARTMENT. FURTHER EVALUATION AND TREATMENT OF YOUR CONDITION CAN WAIT UNTIL YOU ARE SEEN IN YOUR DOCTORS OFFICE WITHIN THE NEXT 1-2 DAYS. IT IS YOUR RESPONSIBILITY TO MAKE AN APPOINTMENT FOR FOL-UP CARE. IF YOU HAVE A PRIMARY DOCTOR --you should call your primary doctor and schedule an appointment IF YOU DO NOT HAVE A PRIMARY DOCTOR YOU CAN CALL OUR PHYSICIAN REFERRAL HOTLINE AT IF YOU CAN NOT AFFORD TO SEE A PHYSICIAN YOU CAN CHOSE FROM THE FOLLOWING [facility] [address] [facility] [address] [facility] [[email or web address] [address] [facility] [address] [facility] [address] [facility]. [facility]. [address] Additional Instructions: Follow up with your PCP within the next 1-3 days for a repeat evaluation. If you require a referral to a specialist, your Primary Care Provider may be able to provide this for you. In most patient cases, a referral is not required. If you have further questions regarding this matter, please ask your Primary Care Provider. Return the the emergency department immediately if symptoms worsen or change. If you have any questions regarding medications, ask your pharmacist or us before you leave. If any adverse reactions, occur while taking your medications, discontinue the treatment and return to the emergency department immediately. If any new or worsening symptoms, uncontrolled fevers, or other unexplained symptoms occur, return to the emergency department immediately. Take your medications as directed, and complete the entire course of treatment. DARRYL RAZO PA-C Nov 18, 2016 10:21
== END 2016-11-18 09:50 | disposition home or self-care (01) ==
LOC: FTE 08:13
DX: M54.5 Low back pain (principal); I10 Essential (primary) hypertension; E03.9 Hypothyroidism, unspecified; R11.0 Nausea
CPT/HCPCS: 81003; 96372; J1885; Z7502; Z7610

== ENCOUNTER 2017-02-02 07:56 | Emergency (ER) | payer SELFPAY ==
[~2017-02-02] VITALS: Ht 165.1 cm; Wt 78.4 kg
[~2017-02-02 07:56] MED LIST changes: +NAPR-260 PO
[2017-02-02 07:57] VITALS: Ht 165.1 cm; Wt 78.4 kg
[2017-02-02] MEDS ORDERED: KETOROLAC 30 MG INJ IM STA (08:14)
[2017-02-02] MEDS ORDERED: AMOX500C2 PO (08:16)
[2017-02-02] MEDS ORDERED: IBUP-1542 PO (08:16)
[2017-02-02] MEDS ORDERED: DEXAMETHASONE 10 MG/ML 1 ML INJ IM ONE (08:30)
[2017-02-02 08:47] VITALS: BP 144/97; PULSE 89
--- NOTE | 2017-02-02 09:36 | ERD ---
ER Documentation Chief Complaint Chief Complaint ST,GEN BODY PAIN,NAUSEA,FEVER HPI Patient is a 46-year-old female with hypertension who presents with a sore throat. The patient had sore throat for 1 week. The pain was worsening. The patient has pain with swallowing. The patient felt like she was choking. She has had no treatment as of yet. The patient was unable to swallow her blood pressure medicines and today her blood pressure is elevated. She says "I do not feel well". She had subjective fevers but did not take her temperature. Upon review of old medical records the patient has multiple visits to the ER for various complaints. ROS All systems reviewed and are negative except as per history of present illness. Medications Home Meds Active Scripts Amoxicillin* (Amoxicillin*) 500 Mg Cap, 500 MG PO TID for 10 Days, CAP Prov:GUME MCKINNON MD 02/02/17 Ibuprofen* (Motrin*) 600 Mg Tab, 600 MG PO Q6H Y for PAIN AND OR ELEVATED TEMP, #30 TAB Prov:GUME MCKINNON MD 02/02/17 Naproxen* (Naprosyn*) 500 Mg Tablet, 500 MG PO BID Y for PAIN AND/OR INFLAMMATION, #30 TAB Prov:DARRYL RAZO PA-C 11/18/16 Ondansetron Hcl* (Zofran*) 4 Mg Tablet, 4 MG PO Q6H for NAUSEA AND/OR VOMITING, #30 TAB Prov:YORDY CASTANEDA PA-C 09/20/16 Hydrocodone/Acetaminophen ([place] 5-325 Tablet) 1 Each Tablet, 1 TAB PO Q6H Y for PAIN, #7 TAB Prov:YORDY CATSANEDA PA-C 09/20/16 Cephalexin* (Keflex*) 500 Mg Capsule, 500 MG PO QID for 5 Days, CAP Prov:DIEUDONNE,KADIE 05/12/16 Metoprolol Succinate* (Toprol XL*) 25 Mg Tab.sr.24h, 25 MG PO DAILY, #30 TAB Prov:SUJATHA BROSON 05/12/16 Ibuprofen* (Ibuprofen*) 600 Mg Tablet, 600 MG PO Q6 for PAIN, #20 TAB Prov:KADIE BRO 05/12/16 Reported Medications Omeprazole* (Prilosec*) 40 Mg Capsule.dr, 40 MG PO DAILY, CAP 12/05/13 Losartan Potassium* (Losartan Potassium*) 100 Mg Tablet, 100 MG PO DAILY, TAB 12/05/13 Levothyroxine Sodium* (Levothyroxine Sodium*) 50 Mcg Tablet, 50 MCG PO DAILY, TAB 12/05/13 Hydrochlorothiazide* (Hydrochlorothiazide*) 25 Mg Tab, 25 MG PO DAILY, TAB 12/05/13 Fluoxetine Hcl* (Prozac*) 10 Mg Capsule, 10 MG PO DAILY 10/12/12 Allergies Allergies: Coded Allergies: No Known Drug Allergies (Verified Allergy, Mild, 09/20/16) PMhx/Soc History of Surgery: Yes ( X3) Anesthesia Reaction: No Hx Neurological Disorder: No Hx Respiratory Disorders: No Hx Cardiac Disorders: Yes (HTN) Hx Psychiatric Problems: Yes (ANXIETY) Hx Miscellaneous Medical Probl: Yes (dvt right leg 1 week ago, right ankle fx, KIDNEY STONE, HYPOTHYROID) Hx Alcohol Use: No Hx Substance Use: No Hx Tobacco Use: No Smoking Status: Never smoker FmHx Family History: diabetes Physical Exam Vitals Vital Signs Date Time Temp Pulse Resp B/P Pulse Ox O2 Delivery O2 Flow Rate FiO2 02/02/17 08:47 89 144/97 02/02/17 07:57 97.3 85 20 215/107 98 Physical Exam Const: No acute distress Head: Atraumatic Eyes: Normal Conjunctiva ENT: Redness of the oropharynx without stridor, no sign of peritonsillar abscess Neck: Full range of motion..~ No meningismus. Resp: Clear to auscultation bilaterally Cardio: Regular rate and rhythm, no murmurs Abd: Soft, non tender, non distended. Normal bowel sounds Skin: No petechiae or rashes Back: No midline or flank tenderness Ext: No cyanosis, or edema Neur: Awake and alert Psych: Normal Mood and Affect Results 24 hrs Current Medications Medications (Trade) Dose Ordered Sig/Rani Route PRN Reason Start Time Stop Time Status Last Admin Dose Admin Ketorolac Tromethamine (Toradol) 30 mg ONCE STAT IM 02/02/17 08:14 02/02/17 08:15 DC 02/02/17 08:20 Dexamethasone (Decadron) 10 mg ONCE ONCE IM 02/02/17 08:30 02/02/17 08:31 DC 02/02/17 08:21 Procedures/MDM Patient is a 46-year-old female presents with acute pharyngitis. Given the length of symptoms I will treat her with amoxicillin. She was given Toradol and Decadron in the emergency department for symptomatically relief. She has elevated blood pressure and will need to take her blood pressure medicines at home. She will be given prescriptions for ibuprofen and amoxicillin. I do not believe she requires further workup or admission the hospital at this time. I doubt peritonsillar abscess, retropharyngeal abscess, or epiglottitis. The patient should follow-up with her primary doctor within 24-48 hours. Departure Diagnosis: Primary Impression: Pharyngitis Pharyngitis/tonsillitis etiology: unspecified etiology Qualified Code: J02.9 - Pharyngitis, unspecified etiology Additional Impression: Hypertension Hypertension type: essential hypertension Qualified Code: I10 - Essential hypertension Condition: Fair Patient Instructions: High Blood Pressure (Hypertension), Pharyngitis, Strep ( Presumed) Referrals: Your doctor Additional Instructions: Call your primary care doctor TOMORROW for an appointment during the next 1-2 days.See the doctor sooner or return here if your condition worsens before your appointment time. GUME MCKINNON MD Feb 02, 2017 09:36
== END 2017-02-02 08:52 | disposition home or self-care (01) ==
LOC: E/R 07:56
DX: J02.9 Acute pharyngitis, unspecified (principal); I10 Essential (primary) hypertension; E03.9 Hypothyroidism, unspecified
CPT/HCPCS: 96372; 99284; J1100; J1885

== ENCOUNTER 2017-02-19 09:22 | Emergency (ER) | END 2017-02-19 13:25 | disposition home or self-care (01) ==

== ENCOUNTER 2017-06-02 06:58 | Day surgery (SDC) | END 2017-06-02 12:05 | disposition home or self-care (01) ==

== ENCOUNTER 2017-06-28 14:25 | Inpatient (IN) | END 2017-07-02 15:17 | disposition home or self-care (01) | DRG 65 ==

== ENCOUNTER 2018-08-02 13:06 | Emergency (ER) | payer OTHER ==
[~2018-08-02] VITALS: Ht 160 cm; Wt 79.3 kg
[~2018-08-02 13:06] MED LIST changes: +ASPI81TA52 PO; +BENA40TA56 PO; -CEPH-443 PO; +DOCU-144 PO; +FENO145T37 PO; -FLUO10CA66 PO; +FLUO20CA22 PO; +HYDR-3601 PO; -HYDR-906 PO; -IBUP-1542 PO; +LABE200T25 PO; -LEVO50TA74 PO; +LEVO75TA5 PO; -LOSA100T7 PO; -METO-335 PO; -NAPR-260 PO; +NIFE60TA18 PO; -OMEP40CA3 PO; -ONDA4TAB8 PO; +PANT40TA4 PO
[2018-08-02 13:14] VITALS: Ht 160 cm; Wt 79.3 kg
[2018-08-02] MEDS ORDERED: ONDANSETRON (ODT) 4 MG TAB ODT STA (14:46)
[2018-08-02] MEDS ORDERED: ASPI81TA52 PO (14:49)
[2018-08-02] MEDS ORDERED: LEVO75TA65 PO (14:50)
[2018-08-02] MEDS ORDERED: HYDR25TA6 PO (14:50)
[2018-08-02] MEDS ORDERED: LIDOCAINE/MYLANTA 40 ML BTL PO ONE (15:00)
[2018-08-02] MEDS ORDERED: NICARDipine HCL 30 MG CAPSULE PO ONE (15:00)
[2018-08-02] MEDS ORDERED: ACETAMINOPHEN 325 MG TAB PO ONE (15:30)
[2018-08-02 15:50] VITALS: BP 140/78; PULSE 108; RESP 20
[2018-08-02] MEDS ORDERED: IBUP-1542 PO (16:08)
--- NOTE | 2018-08-02 16:09 | ERD ---
ER Documentation Chief Complaint Chief Complaint SHARP CHEST PAIN / ONSET 30 MINS AGO.NON RADIATING.HEADACHE HPI Patient is a 47-year-old female with hypertension who presents for chest pain and headache. The patient said that she has headache and stabbing chest pain. She describes it as an 8 out of 10. She feels tingling on the right side of her body. She has dizziness and nausea. She feels depressed and was tearful during the history and physical exam. She denies suicidal or homicidal ideation. ROS All systems reviewed and are negative except as per history of present illness. Medications Home Meds Active Scripts Ibuprofen* (Motrin*) 600 Mg Tab, 600 MG PO Q6H PRN for PAIN AND OR ELEVATED TEMP, #30 TAB Prov:GUME MCKINNON MD 08/02/18 Reported Medications Levothyroxine Sodium* (Levoxyl*) 75 Mcg Tablet, 75 MCG PO BEFORE BREAKFAST, #30 TAB 08/02/18 Hydrochlorothiazide* (Hydrochlorothiazide*) 25 Mg Tab, 25 MG PO DAILY, #30 TAB 08/02/18 Aspirin (Low Dose Aspirin) 81 Mg Tablet.dr, 81 MG PO DAILY, #30 TAB 08/02/18 Discontinued Reported Medications Labetalol Hcl* (Labetalol Hcl*) 200 Mg Tablet, 200 MG PO BID, TAB 06/28/17 Nifedipine* (Nifedipine ER*) 60 Mg Tablet.sa, 60 MG PO DAILY, TAB.SA 06/28/17 Hydrochlorothiazide* (Hydrochlorothiazide*) 25 Mg Tab, 25 MG PO DAILY, #30 TAB 06/28/17 Benazepril Hcl* (Benazepril Hcl*) 40 Mg Tablet, 40 MG PO DAILY, #30 TAB 06/28/17 Aspirin (Low Dose Aspirin) 81 Mg Tablet.dr, 81 MG PO DAILY, #30 TAB 06/28/17 Discontinued Scripts Docusate Sodium* (Colace*) 100 Mg Capsule, 100 MG PO DAILY, #30 CAP Prov:YOLANDA OATES 07/02/17 Hydrocodone Bit-Acetaminophen (Hydrocodone Bit-APAP) 5-325MG Tablet, 1 TAB PO Q6H PRN for PAIN LEVEL 4-6, #14 TAB Prov:YOLANDA OATES 07/02/17 Pantoprazole* (Pantoprazole*) 40 Mg Tablet., 40 MG PO DAILY@06 for 30 Days Prov:YOLANDA OATES 07/02/17 Levothyroxine Sodium* (Levothyroxine Sodium*) 75 Mcg Tablet, 75 MCG PO DAILY@06 for 30 Days, TAB Prov:YOLANDA OATES 07/02/17 Fluoxetine Hcl* (Fluoxetine Hcl*) 20 Mg Capsule, 20 MG PO DAILY for 30 Days, CAP Prov:YOLANDA OATES 07/02/17 Fenofibrate Nanocrystallized* (Fenofibrate*) 145 Mg Tablet, 145 MG PO DAILY for 30 Days, TAB Prov:ANETAEYOLANDA ORTIZ 07/02/17 Allergies Allergies: Coded Allergies: No Known Drug Allergies (Verified Allergy, Mild, 08/02/18) PMhx/Soc History of Surgery: Yes (c section x 3) Anesthesia Reaction: No Hx Neurological Disorder: No Hx Respiratory Disorders: No Hx Cardiac Disorders: Yes (htn,) Hx Psychiatric Problems: Yes (depresion.anxiety) Hx Miscellaneous Medical Probl: Yes (pls see EMR) Hx Alcohol Use: No Hx Substance Use: No Hx Tobacco Use: No Smoking Status: Never smoker FmHx Family History: No diabetes Physical Exam Vitals Vital Signs Date Temp Pulse Resp B/P (MAP) Pulse Ox O2 O2 Flow FiO2 Time Delivery Rate 08/02/18 99.0 108 20 140/78 96 Room Air 15:50 (98) 08/02/18 37.2 15:12 08/02/18 98.9 112 22 160/99 96 Room Air 14:39 (119) 08/02/18 98.9 112 18 192/104 94 13:14 (133) Physical Exam Const: No acute distress Head: Atraumatic Eyes: Normal Conjunctiva ENT: Normal External Ears, Nose and Mouth. Neck: Full range of motion. No meningismus. Resp: Clear to auscultation bilaterally Cardio: Regular rate and rhythm, no murmurs Abd: Soft, non tender, non distended. Normal bowel sounds Skin: No petechiae or rashes Back: No midline or flank tenderness Ext: No cyanosis, or edema Neur: Awake and alert, cranial nerves II through XII are intact, strength is 5 out of 5 in all 4 extremities, no slurred speech Psych: Normal Mood and Affect Result Diagram: 08/02/18 1450 08/02/18 1450 Results 24 hrs Laboratory Tests Test 08/02/18 14:47 08/02/18 14:50 POC Beta HCG, Qualitative NEGATIVE White Blood Count 9.4 10^3/ul Red Blood Count 4.60 10^6/ul Hemoglobin 12.2 g/dl Hematocrit 37.9 % Mean Corpuscular Volume 82.4 fl Mean Corpuscular Hemoglobin 26.5 pg Mean Corpuscular Hemoglobin Concent 32.2 g/dl Red Cell Distribution Width 14.5 % Platelet Count 362 10^3/UL Mean Platelet Volume 10.4 fl Immature Granulocytes % 0.200 % Neutrophils % 81.6 % Lymphocytes % 14.8 % Monocytes % 2.7 % Eosinophils % 0.1 % Basophils % 0.6 % Nucleated Red Blood Cells % 0.0 /100WBC Immature Granulocytes # 0.020 10^3/ul Neutrophils # 7.7 10^3/ul Lymphocytes # 1.4 10^3/ul Monocytes # 0.3 10^3/ul Eosinophils # 0.0 10^3/ul Basophils # 0.1 10^3/ul Nucleated Red Blood Cells # 0.0 10^3/ul Sodium Level 143 mmol/L Potassium Level 3.9 mmol/L Chloride Level 106 mmol/L Carbon Dioxide Level 25 mmol/L Anion Gap 12 Blood Urea Nitrogen 13 mg/dl Creatinine 0.53 mg/dl Est Glomerular Filtrat Rate mL/min > 60 mL/min Glucose Level 119 mg/dl Calcium Level 9.6 mg/dl Troponin I < 0.012 ng/ml Current Medications Medications Dose Sig/Rani Start Time Status Last (Trade) Ordered Route PRN Stop Time Admin Dose Reason Admin Nicardipine 30 mg ONCE ONCE 08/02/18 DC 08/02/18 HCl PO 15:00 15:00 (Cardene) 08/02/18 15:01 40 ml ONCE ONCE 08/02/18 DC 08/02/18 Miscellaneous PO 15:00 15:00 Medication 08/02/18 15:01 (Gi Cocktail (2)) Ondansetron 4 mg ONCE STAT 08/02/18 DC 08/02/18 HCl (Zofran ODT 14:46 15:00 Odt) 08/02/18 14:47 650 mg ONCE ONCE 08/02/18 DC 08/02/18 Acetaminophen PO 15:30 15:12 (Tylenol 6/20/19 15:31 Tab) Ibuprofen 800 mg ONCE ONCE 08/02/18 DC 08/02/18 (Motrin) PO 16:30 16:11 08/02/18 16:30 Procedures/MDM EKG read by me: Rate/Rhythm: Sinus tachycardia Intervals: Normal Impression: Tachycardia without ischemia Chest X-ray 1V Interpreted by me: Soft Tissue: No acute abnormalities Bones: No acute abnormalities Mediastinum/Cardiac Silhouette/Lungs: No acute abnormalities Patient is a 47-year-old female presents with chest pain and headache. I doubt acute coronary syndrome, pneumonia, pneumothorax, pulmonary embolism, or aortic dissection. I doubt stroke, intrarenal hemorrhage, or intra-cranial mass. I believe outpatient management is appropriate but the patient will need close follow-up with her primary doctor within 24 to 48 hours. The patient can return sooner for any worsening symptoms. Departure Diagnosis: Primary Impression: Chest pain Chest pain type: unspecified Qualified Codes: R07.9 - Chest pain, unspecified Condition: Fair Patient Instructions: Chest Pain, Uncertain Cause Referrals: EL ZAKI ANDERSON (PCP) Additional Instructions: Call your primary care doctor TOMORROW for an appointment during the next 1-2 days.See the doctor sooner or return here if your condition worsens before your appointment time. GUME MCKINNON MD Aug 02, 2018 16:09
[2018-08-02] MEDS ORDERED: IBUPROFEN 800 MG TAB PO ONE (16:30)
== END 2018-08-02 16:17 | disposition home or self-care (01) ==
LOC: E/R 13:06
DX: I10 Essential (primary) hypertension (principal); Z79.82 Long term (current) use of aspirin
CPT/HCPCS: 71045; 80048; 81025; 84484; 85025; 93005; Z7502; Z7610